=== PATIENT | male | born 1980 | race Hispanic/Latino ===

== ENCOUNTER 2019-03-14 08:08 | Emergency (ER) | payer SELFPAY ==
--- NOTE | 2019-03-14 08:15 | Emergency Department Report ---
HPI - General Time Seen by Provider: 03/14/19 08:08 - HPI HPI: Room 21 --> 1 The pt is an adult male dropped off by private vehicle with a cc of overdose. The pt was reported to have taken GHB. The pt is altered and appears obtunded but becomes hyperactive but nonverbal when sternally rubbed. Pt then goes back to sleep. ED Past Medical Hx - Past Medical History Previous Medical History?: No - Surgical History Past Surgical History?: No - Family History Family history: no significant - Social History Smoking Status: Unknown if ever smoked Substance Use Type: None ED Review of Systems ROS: Stated complaint: OVERDOSE Other details as noted in HPI Comment: Unobtainable due to pts medical conditions Physical Exam - Physical Exam Physical Exam: GEN: WD WN M lying on stretcher obtunded. With deep sternal rub pt becomes hyperagitated but then calms down and goes back to sleep HEENT: pupils 2mm bilat, NCAT NECK: Trachea midline, no stridor CV: rrr no m/r/g PULM: CTA bilat, no resp distress ABD: S/NT/ND +BS SKIN: No diaphoresis NEURO: pt appears obtunded. With deep sternal rub pt becomes hyperagitated but then calms down and goes back to sleep. moves all 4 ext MS: no deformity ED Course - Reevaluation(s) Reevaluation #1: 03/14/19 14:29 Patient now awake and oriented. Patient denies complaints. ED Medical Decision Making - Lab Data Result diagrams: 03/14/19 08:14 03/14/19 08:14 Laboratory Tests 03/14/19 03/14/19 03/14/19 08:14 08:14 08:14 WBC 7.2 RBC 4.57 Hgb 14.1 Hct 42.5 MCV 93 MCH 31 MCHC 33 RDW 15.0 Plt Count 320 Lymph % (Auto) 31.1 [place] % (Auto) 11.9 H Eos % (Auto) 1.5 Baso % (Auto) 1.7 Lymph # 2.2 [place] # 0.9 H Eos # 0.1 Baso # 0.1 Seg Neutrophils % 53.8 Seg Neutrophils # 3.9 PT 15.5 H INR 1.24 H APTT 30.9 Sodium 142 Potassium 3.9 Chloride 105.5 Carbon Dioxide 19 L Anion Gap 21 BUN 11 Creatinine 0.7 L Estimated GFR > 60 BUN/Creatinine Ratio 16 Glucose 106 H POC Glucose Calcium 8.9 Total Bilirubin 0.40 AST 37 ALT 25 Alkaline Phosphatase 83 Ammonia Total Creatine Kinase 577 H CK-MB (CK-2) 8.1 H CK-MB (CK-2) Rel Index 1.4 Troponin T < 0.010 Total Protein 7.3 Albumin 4.6 Albumin/Globulin Ratio 1.7 Urine Color Urine Turbidity Urine pH Ur Specific [place] Urine Protein Urine Glucose (UA) Urine Ketones Urine Blood Urine Nitrite Urine Bilirubin Urine Urobilinogen Ur Leukocyte Esterase Urine WBC (Auto) Urine RBC (Auto) Urine Mucus Urine Opiates Screen Urine Methadone Screen Ur Barbiturates Screen Ur Phencyclidine Scrn Ur Amphetamines Screen U Benzodiazepines Scrn Urine Cocaine Screen U Marijuana (THC) Screen Drugs of Abuse Note Plasma/Serum Alcohol 03/14/19 03/14/19 03/14/19 08:14 08:14 08:26 WBC RBC Hgb Hct MCV MCH MCHC RDW Plt Count Lymph % (Auto) [place] % (Auto) Eos % (Auto) Baso % (Auto) Lymph # [place] # Eos # Baso # Seg Neutrophils % Seg Neutrophils # PT INR APTT Sodium Potassium Chloride Carbon Dioxide Anion Gap BUN Creatinine Estimated GFR BUN/Creatinine Ratio Glucose POC Glucose 81 Calcium Total Bilirubin AST ALT Alkaline Phosphatase Ammonia 47.0 Total Creatine Kinase CK-MB (CK-2) CK-MB (CK-2) Rel Index Troponin T Total Protein Albumin Albumin/Globulin Ratio Urine Color Urine Turbidity Urine pH Ur Specific [place] Urine Protein Urine Glucose (UA) Urine Ketones Urine Blood Urine Nitrite Urine Bilirubin Urine Urobilinogen Ur Leukocyte Esterase Urine WBC (Auto) Urine RBC (Auto) Urine Mucus Urine Opiates Screen Urine Methadone Screen Ur Barbiturates Screen Ur Phencyclidine Scrn Ur Amphetamines Screen U Benzodiazepines Scrn Urine Cocaine Screen U Marijuana (THC) Screen Drugs of Abuse Note Plasma/Serum Alcohol < 0.01 03/14/19 03/14/19 09:52 09:52 WBC RBC Hgb Hct MCV MCH MCHC RDW Plt Count Lymph % (Auto) [place] % (Auto) Eos % (Auto) Baso % (Auto) Lymph # [place] # Eos # Baso # Seg Neutrophils % Seg Neutrophils # PT INR APTT Sodium Potassium Chloride Carbon Dioxide Anion Gap BUN Creatinine Estimated GFR BUN/Creatinine Ratio Glucose POC Glucose Calcium Total Bilirubin AST ALT Alkaline Phosphatase Ammonia Total Creatine Kinase CK-MB (CK-2) CK-MB (CK-2) Rel Index Troponin T Total Protein Albumin Albumin/Globulin Ratio Urine Color [place] Urine Turbidity Clear Urine pH 5.0 Ur Specific [place] 1.028 Urine Protein 30 mg/dl Urine Glucose (UA) Neg Urine Ketones 20 Urine Blood Neg Urine Nitrite Neg Urine Bilirubin Neg Urine Urobilinogen 2.0 Ur Leukocyte Esterase Neg Urine WBC (Auto) 3.0 Urine RBC (Auto) 9.0 Urine Mucus 3+ Urine Opiates Screen Presumptive negative Urine Methadone Screen Presumptive negative Ur Barbiturates Screen Presumptive negative Ur Phencyclidine Scrn Presumptive negative Ur Amphetamines Screen Presumptive positive U Benzodiazepines Scrn Presumptive negative Urine Cocaine Screen Presumptive negative U Marijuana (THC) Screen Presumptive positive Drugs of Abuse Note Disclamer Plasma/Serum Alcohol - Radiology Data Radiology results: report reviewed (CT head), image reviewed (CT head) [address] [address] Cat Scan Report Signed Patient: THONY BOLAND MR#: [id number] : 1980 Acct:[id number] Age/Sex: 38 / M ADM Date: 03/14/19 Loc: ED Attending Dr: Ordering Physician: ANNA CALLOWAY MD Date of Service: 03/14/19 Procedure(s): CT head/brain wo con Accession Number(s): [id number] cc: ANNA CALLOWAY MD CT BRAIN: 03/14/2019 INDICATION / CLINICAL INFORMATION: altered mental status. COMPARISON: None available. FINDINGS: BRAIN/INTRACRANIAL STRUCTURES: Unenhanced CT images of the brain demonstrate no evidence of acute intracranial abnormality. Ventricles and sulci are normal in size and shape. There is no evidence of hemorrhage or mass. There are no abnormal extra-axial fluid collections. EXTRACRANIAL STRUCTURES: Unremarkable. IMPRESSION: Negative unenhanced CT of the brain. All CT scans at this location are performed using dose reduction to ALARA by means of automated exposure control. Signer Name: Nam Lora MD Signed: 03/14/2019 2:19 PM Workstation Name: [id number] Transcribed By: AO Dictated By: Nam Lora MD Electronically Authenticated By: Nam Lora MD Signed Date/Time: 03/14/19 1419 DD/ 1418 TD/TT: - Differential Diagnosis drug overdose Critical care attestation.: If time is entered above; I have spent that time in minutes in the direct care of this critically ill patient, excluding procedure time. ED Disposition Clinical Impression: Gamma-hydroxybutyrate (GHB) use disorder, moderate, Amphetamine abuse Disposition: DC-01 TO HOME OR SELFCARE Is pt being admited?: No Does the pt Need Aspirin: No Condition: Stable Instructions: Polysubstance Abuse (ED) Additional Instructions: Return to the emergency department should you develop worsening symptoms, inability to tolerate food or liquids, high fever or any other concerns Referrals: PRIMARY CARE, [Primary Care Provider] - 3-5 Days [facility] [Outside] - 3-5 Days Time of Disposition: 14:28
[2019-03-14 08:42] LABS: Basophils # (Auto) 0.1 K/mm3 (0.0-0.1); Basophils % (Auto) 1.7 % (0.0-1.8); Eosinophils # (Auto) 0.1 K/mm3 (0.0-0.4); Eosinophils % (Auto) 1.5 % (0.0-4.3); Hematocrit 42.5 % (35.5-45.6); Hemoglobin 14.1 gm/dl (11.8-15.2); Lymphocytes # (Auto) 2.2 K/mm3 (1.2-5.4); Lymphocytes % (Auto) 31.1 % (13.4-35.0); Mean Corpuscular HGB Conc 33 % (32-34); Mean Corpuscular Volume 93 fl (84-94); Monocytes # (Auto) 0.9 K/mm3 (0.0-0.8); Monocytes % (Auto) 11.9 % (0.0-7.3); Platelet Count 320 K/mm3 (140-440); Red Blood Count 4.57 M/mm3 (3.65-5.03)
[2019-03-14 08:53] LABS: INR 1.24 (0.87-1.13)
[2019-03-14 08:54] LABS: Partial Thromboplastin Time 30.9 Sec. (24.2-36.6)
[2019-03-14 08:58] LABS: Creatine Kinase MB 8.1 ng/mL (0.0-4.0)
[2019-03-14 08:59] LABS: Albumin 4.6 g/dL (3.9-5); BUN/Creatinine Ratio 16; Blood Urea Nitrogen 11 mg/dL (9-20); Calcium 8.9 mg/dL (8.4-10.2); Hemolysis Index 109
[2019-03-14 09:06] LABS: Alanine Aminotransferase 25 units/L (7-56)
[2019-03-14 10:16] LABS: Bilirubin,Urine NEG (Negative); Blood,Urine NEG (Negative); Color,Urine Amber (Yellow); Mucus,Urine 3+ /HPF
[2019-03-14 10:27] LABS: Benzodiazepines Screen,Urine PRESUMPTIVE NEGATIVE; Cocaine Screen,Urine PRESUMPTIVE NEGATIVE; Methadone Screen,Urine PRESUMPTIVE NEGATIVE; Opiate Screen,Urine PRESUMPTIVE NEGATIVE
[2019-03-14 10:43] LABS: Amphetamine Screen,Urine PRESUMPTIVE POSITIVE; Cannabinoid Screen,Urine PRESUMPTIVE POSITIVE
--- NOTE | 2019-03-14 14:24 | Cat Scan Report ---
CT BRAIN: 03/14/2019 INDICATION / CLINICAL INFORMATION: altered mental status. COMPARISON: None available. FINDINGS: BRAIN/INTRACRANIAL STRUCTURES: Unenhanced CT images of the brain demonstrate no evidence of acute int racranial abnormality. Ventricles and sulci are normal in size and shape. There is no evidence of hemorrhage or mass. There are no abnormal extra-axial fluid collections. EXTRACRANIAL STRUCTURES: Unremarkable. IMPRESSION: Negative unenhanced CT of the brain. All CT scans at this location are performed using dose reduction to ALARA by means of automated expos ure control. Signer Name: Nam Lora MD Signed: 03/14/2019 2:19 PM Workstation Name: [id number]
[2019-03-14 15:31] VITALS: BP 111/72
== END 2019-03-14 15:30 | disposition home or self-care (01) ==
LOC: ED 08:08
DX: F19.10 Other psychoactive substance abuse, uncomplicated (principal); F15.10 Other stimulant abuse, uncomplicated
CPT/HCPCS: 36415; 70450; 80053; 80307; 80320; 81001; 82140; 82550; 82553; 82962; 84484; 85025; 85610; 85730; G0480